=== PATIENT | female | born 1940 | race Caucasian/White ===

== ENCOUNTER 2017-05-03 16:27 | Emergency (ER) | payer MEDICARE, OTHER ==
[~2017-05-03] VITALS: Ht 177.8 cm; Wt 52.2 kg
[~2017-05-03 16:27] MED LIST: ARICEPT10 MG PO; CEPHALEXIN500 MG PO; ESTRADIOL1 MG PO; KLOR-CON SPRIN10 MEQ PO; LIPITOR10 MG PO; LISINOPRIL5 MG PO; NAMENDA XR28 MG PO; NORCO 5-325 TA1 EACH PO; VITAMIN D32000 UNIT PO
[2017-05-03] MEDS ORDERED: KEFLEX500 MG PO (20:30)
== END 2017-05-03 20:50 | disposition home or self-care (01) ==
LOC: ED 16:27
DX: N39.0 Urinary tract infection, site not specified (principal); F03.90 Unspecified dementia, unspecified severity, without behavioral disturbance, psychotic disturbance, mood disturbance, and anxiety; I25.2 Old myocardial infarction; Z87.891 Personal history of nicotine dependence; Z95.1 Presence of aortocoronary bypass graft; Z96.642 Presence of left artificial hip joint; Z88.6 Allergy status to analgesic agent; Z88.8 Allergy status to other drugs, medicaments and biological substances; Z79.899 Other long term (current) drug therapy
CPT/HCPCS: 80053; 81001; 85025; 85610; 85730; 87077; 87088; 87186; 99283

== ENCOUNTER 2017-06-03 12:06 | Emergency (ER) | payer MEDICARE, OTHER ==
[~2017-06-03] VITALS: Ht 177.8 cm; Wt 52.2 kg
[~2017-06-03 12:06] MED LIST changes: +KEFLEX500 MG PO
--- NOTE | 2017-06-03 13:39 | NUR ---
PT'S SON IN LAW [place]Z REQUESTED I VISIT PT AND HIS . I STOPPED BY, PT LAYING STILL, SEEMINGLY UNRESPONSIVE. HAD NOT YET BEEN IN TO EXAMINE. I CONNECTED WITH RN YAHAIRA, HE INFORMED ME THAT LABS, EKG AND CHEST X-RAY HAD BEEN ORDERED. I SHARED THIS WITH FAMILY-THIS APPEARED TO HELP THEM SOME. VERY STRESSFUL TIME FOR FAMILY-OTHER FAMILY IN THE HOSP. AT THIS SAME TIME. THEY FEEL PULLED IN MULTIPLE DIRECTIONS. STACY (DAUGHTER) DECLINED PRAYER. WILL CONTINUE TO FOLLOW
--- NOTE | 2017-06-03 15:01 | EKG ---
[facility] [address] [facility] [place] [id number] Signed Atrial fibrillation Cannot rule out Inferior infarct (cited on or before 31-AUG-2016) ST \T\ T wave abnormality, consider lateral ischemia Abnormal ECG When compared with ECG of 31-AUG-2016 10:21, Atrial fibrillation has replaced Sinus rhythm ST now depressed in Anterior leads Inverted T waves have replaced nonspecific T wave abnormality in Inferior leads Confirmed by MILDRED CARVER MD ([id number] on 06/03/2017 3:01:16 PM Electronically Signed By: MILDRED CARVER MD 06/03/17 1501 PATIENT NAME: BROOKE BALTAZAR Electrocardiogram DATE OF : 38 PHYSICIAN: MILDRED CARVER MD REPORT #: [id number] REPORT IS CONFIDENTIAL AND NOT TO BE RELEASED WITHOUT AUTHORIZATION
== END 2017-06-03 15:50 | disposition home or self-care (01) ==
LOC: ED 12:06
PROC: 0T9B70Z Drainage of Bladder with Drainage Device, Via Natural or Artificial Opening (ICD-10-PCS; principal; 2017-06-03)
DX: J06.9 Acute upper respiratory infection, unspecified (principal); F03.90 Unspecified dementia, unspecified severity, without behavioral disturbance, psychotic disturbance, mood disturbance, and anxiety; I25.2 Old myocardial infarction; E78.00 Pure hypercholesterolemia, unspecified; I10 Essential (primary) hypertension; Z87.891 Personal history of nicotine dependence; Z88.8 Allergy status to other drugs, medicaments and biological substances; Z79.2 Long term (current) use of antibiotics; Z79.899 Other long term (current) drug therapy; Z88.6 Allergy status to analgesic agent
CPT/HCPCS: 36415; 51701; 71045; 80053; 81001; 83605; 84484; 85025; 87040; 87502; 93005; 93010; 99284; J7030